=== PATIENT | female | born 1990 | race Caucasian/White ===

== ENCOUNTER 2019-10-29 13:52 | Emergency (ER) | payer SELFPAY ==
[~2019-10-29] VITALS: Ht 157.5 cm; Wt 79.4 kg
[2019-10-29 13:54] VITALS: BP 128/83
--- NOTE | 2019-10-29 14:08 | NUR ---
XRAY AT BEDSIDE
[2019-10-29] MEDS ORDERED: IBUPROFEN 600 MG TAB PO ONE (14:30)
[2019-10-29] MEDS ORDERED: BACITRACIN OINT 500 UNITS/GM PKT TP ONE (14:30)
--- NOTE | 2019-10-29 14:30 | NUR ---
29 Y/O FEMALE C/O LEFT KNEE PAIN RADIATING DOWN TO LEFT ANKLE S/P RESISTING ARREST ON OFFICER ONE WEEK AGO. PT STATES SHE RESISTED ARREST ONE WEEK AGO AND STATES SHE WAS "THROWN AROUND" BY PHARMACISTS, FELT HER KNEE POP OUT OF PLACE WELL HER ANKLE. MILD SWELLING NOTED AROUND LEFT KNEE AND LEFT ANKLE. NO DEFORMITY NOTED. CMS+, ROM+. PEDAL PULSES PRESENT BILAT. PT ABLE TO AMBULATE WITHOUT ASSISTANCE. MULTIPLE SMALL LACERATIONS NOTED ON LEFT FOOT AND LEFT AGEE. NO PMH NKA
--- NOTE | 2019-10-29 14:47 | NUR ---
MOTRIN PO ADMINISTERED. BACITRACIN APPLIED TO PTS ABRASION ON L FOOT
--- NOTE | 2019-10-29 15:00 | NUR ---
nadr, pain 09/11
--- NOTE | 2019-10-29 15:00 | NUR ---
pt arrived with L knee brace and is leaving with her brace in place. pedal pulse wnl
--- NOTE | 2019-10-29 15:01 | NUR ---
Patient discharged with v/s stable. Written and verbal after care instructions given and explained regarding knee sprain and abrasion to L foot. Patient alert, oriented and verbalized understanding of instructions. Ambulatory with steady gait. All questions addressed prior to discharge. ID band removed. Patient advised to follow up with PMD. Rx of ibuprofen and bacitracin given. Patient educated on indication of medication including possible reaction and side effects. Opportunity to ask questions provided and answered. instructed to apply bacitracin to abrasion once a day and to keep area dry instructed to follow rice in regards to knee sprain- rest, ice, elevate, and compression
== END 2019-10-29 15:01 | disposition home or self-care (01) ==
LOC: MED 13:52
DX: S83.8X2A Sprain of other specified parts of left knee, initial encounter (principal); S93.492A Sprain of other ligament of left ankle, initial encounter; S80.812A Abrasion, left lower leg, initial encounter; X58.XXXA Exposure to other specified factors, initial encounter; Y93.9 Activity, unspecified; Y92.89 Other specified places as the place of occurrence of the external cause; Y99.8 Other external cause status
CPT/HCPCS: 73562; 73610; 73630; 99284; Q0092